=== PATIENT | female | born 1965 | race Caucasian/White ===

== ENCOUNTER 2016-08-03 20:44 | Inpatient (IN) | payer OTHER ==
[~2016-08-03] VITALS: Ht 160 cm; Wt 47.4 kg
--- NOTE | ~2016-08-03 | ST ---
[place], [place] EXERCISE STRESS TEST REPORT [facility]: [id number] UN[facility] #: [id number] ROOM: 415 DOCTOR: OLIVIA DREW MD BIRTHDATE: [birth year] DOS: 08/04/2016 INDICATIONS: Atypical chest pain. PROCEDURE: The patient was given rapid infusion of regadenoson 0.4 mg, followed by a saline flush. She developed nausea and dry heaves. The resting heart rate of 76 humberto to 114. The resting blood pressure of 122/84 humberto to 138/78. She was in sinus rhythm throughout and did not develop any ST or T-wave changes. 40 seconds after the infusion of regadenoson, radionuclide was administered. IMPRESSION: 1. Well tolerated infusion of regadenoson. 2. Radionuclide injected. Please see the separate imaging report for further details of the patient's stress test results. OLIVIA DREW MD CM:STRESS:EXERCISE STRESS TEST REPORT [id number] OLIVIA DREW MD
--- NOTE | ~2016-08-03 | CON ---
[place], [place] REPORT OF CONSULTATION NAME: ALFREDO GARCIA [facility] #: [id number] UNIT #: [id number] ROOM: 415 DOCTOR: OLIVIA DREW MD BIRTHDATE: [birth year] DOS: 08/04/2016 REASON FOR CONSULTATION: Chest pain. HISTORY OF PRESENT ILLNESS: The patient is a 50-year-old woman who has no previously documented heart disease. She states that she did have a mitral valve prolapse in the past; however, an echocardiogram done in 2007 showed normal left ventricular size and function with normal mitral leaflet excursion and no regurgitation. The patient states that she was in her normal state of health until about 3 days ago when she began having episodic left chest pain. She describes a sharp pain that begins under her breast, radiates around her left breast and then up into her left anterior chest, shoulder and upper arm. This is associated with dyspnea and slight diaphoresis. The pains can last 15-20 minutes and resolve spontaneously. They are not exertional in origin. She believes that aspirin has helped some. She denies that she has any tenderness of the region. She became concerned and called EMS and they encouraged her to come to the Emergency Room. Since she has been here, her electrocardiograms have shown no acute ST changes and cardiac biomarkers have all been entirely normal. In addition, I did supervise a pharmacologic stress test on her earlier today. She tolerated the infusion of regadenoson very well. Images obtained showed normal myocardial perfusion with an ejection fraction of 81% and normal wall motion. PAST MEDICAL HISTORY: Includes 1. Anxiety. 2. Chronic and ongoing cigarette abuse. 3. Chronic bronchitis. 4. History of cerebral aneurysm (documentation not currently available). 5. Chronic pain. 6. Cervical degenerative joint disease. 7. Essential hypertension. 8. History of syncope. 9. History of "delusional disorder." 10. History of cholecystectomy. FAMILY HISTORY: Positive for both her parents having heart disease at a later age. REVIEW OF SYSTEMS: The patient denies diplopia. She feels generally weak. She denies focal weakness. She denies current syncope. She does feel occasionally lightheaded. She denies vomiting, but she has had nausea. She does have a severe headache which she describes as a migraine. She denies orthopnea or PND. She has not had a cough and denies any significant sputum production. She does have the chest pain described above. She has chronic abdominal pain, which she states is different from her chest pain. She denies any blood in the urine or stools. She denies any peripheral edema or history of blood clot. She denies polyuria or polydipsia. She denies heat or cold intolerance. Remainder of the review of systems is negative except as noted above. [place], [place] REPORT OF CONSULTATION NAME: ALFREDO GARCIA UNIT #: [id number] ROOM: [facility] DOCTOR: OLIVIA DREW MD BIRTHDATE: [birth year] SOCIAL HISTORY: The patient does not consume alcohol or take illicit drugs. She is a smoker. PHYSICAL EXAMINATION: GENERAL: The patient is a slender white female who is awake, alert and oriented. VITAL SIGNS: Pulse is 80 and regular, blood pressure is 112/65. She is afebrile. She weighs 47.4 kg and has a body mass index of 18.5. HEENT: Normocephalic, atraumatic. Extraocular muscles are intact. Sclerae are clear. Pupils are equal, round and reactive to light. The oral mucosa is moist. Tongue is midline. NECK: Supple. She does have a soft left carotid bruit, but none on the right. She has no neck or supraclavicular masses. She does have mild thyromegaly. LUNGS: Respirations are unlabored at rest. She has decreased breath sounds at the bases, but no wheezes or rales. She has no presacral edema or chest wall tenderness. I could not reproduce her chest pain by palpation of her chest. CARDIOVASCULAR: Her heart has a regular rhythm without murmurs, rubs or gallops. The PMI was not displaced. She had no precordial heave, lift or thrill. ABDOMEN: Soft and diffusely, but mildly tender without masses, organomegaly or rebound. EXTREMITIES: Showed no clubbing, cyanosis or edema. Peripheral pulses were easily palpated in the feet bilaterally. LABORATORY DATA: I have reviewed her electrocardiogram, which showed sinus rhythm and was a normal tracing. I also reviewed her stress test images and those were normal as well with a normal ejection fraction and wall motion. There was no evidence for myocardial ischemia. IMPRESSIONS: 1. Atypical chest pain. There is no evidence by examination, electrocardiogram, cardiac biomarkers or stress test that this is cardiac pain and I think that we are safe to say that she has noncardiac chest pain. Most likely, this is musculoskeletal or GI in origin. 2. History of anxiety. 3. History of hypothyroidism, on replacement. 4. History of hypertension, well controlled. 5. Long-term and ongoing cigarette abuse. PLAN: I advised the patient that she should stop smoking. We will obtain a bilateral carotid ultrasound in order to evaluate her left carotid bruit. Since she does not appear to have acute coronary ischemia, she could be discharged to have this done as an outpatient. No other cardiac workup is indicated or pending at this time. We thank the hospitalist physicians for asking our advice regarding her assessment and care. [place], [place] REPORT OF CONSULTATION NAME: ALFREDO GARCIA UNIT #: [id number] ROOM: [facility] DOCTOR: OLIVIA DREW MD BIRTHDATE: [birth year] OLIVIA DREW MD CM:CONSTR:REPORT OF CONSULTATION 1701 08/05/16 0908 interface
--- NOTE | ~2016-08-03 | PR ---
[place], [place] PROGRESS NOTE NAME: ALFREDO GARCIA [facility] #: [id number] UNIT #: [id number] ROOM: 415 DOCTOR: OLIVIA DREW MD BIRTHDATE: [birth year] DOS: 08/05/2016 CARDIOLOGY PROGRESS NOTE SUBJECTIVE: The patient was seen at her bedside today 08/05/2016 for followup of her atypical chest pain and left carotid bruit. The patient is feeling better. She still has some tightness in her chest, but it does seem to be improving spontaneously. She denies palpitations, lightheadedness, syncope or worsening dyspnea. PHYSICAL EXAMINATION: VITAL SIGNS: Her pulse is 63 and regular, blood pressure is 125/82. She is afebrile. NECK: Supple. She has no jugular distention. Carotids are full. She has a soft left carotid bruit. LUNGS: Respirations are unlabored. Her chest shows decreased breath sounds at the bases, but no wheezes or rales. HEART: Has a regular rhythm without murmurs, rubs or gallops. The PMI is not displaced. ABDOMEN: Soft and mildly tender. EXTREMITIES: Showed no clubbing, cyanosis or edema. LABORATORY DATA: Her carotid ultrasound showed no significant stenoses. By ____ criteria, she has less than 50% stenoses of the internal carotids bilaterally. IMPRESSION: 1. Atypical, noncardiac chest pain. 2. History of anxiety. 3. History of hypothyroidism, on replacement. 4. History of hypertension, which is well controlled. 5. Long-term and ongoing cigarette abuse. 6. Left carotid bruit. The patient has no evidence for carotid stenosis. PLAN: Once again the patient should stop smoking. No other cardiac workup is planned at this time. We will remain available to see her as needed. I thank the hospitalist physicians for asking our advice regarding her care. [place], [place] PROGRESS NOTE NAME: ALFREDO GARCIA [facility] #: [id number] UNIT #: [id number] ROOM: 415 DOCTOR: OLIVIA DREW MD BIRTHDATE: [birth year] OLIVIA DREW MD CM:PNTRANS [id number] OLIVIA DREW MD 08/06/16 0540 interface
[~2016-08-03 20:44] MED LIST: ALBUTEROL0.09 MG/A2 INH; ATENOLOL25 MG PO; ATIVAN PO; ATIVAN0.5 MG PO; ATIVAN1 MG PO; BACTRIM DS 8001 TA1 PO; BACTROBAN OINT22 GM PO; CIPRO; CIPRO250 MG PO; CIPRO500 MG PO; CIPROFLOXACIN500 MG PO; CLARITIN10 MG; CLARITIN10 MG PO; CLEOCIN HCL150 MG PO; COMBIVENT1 ARO IH; DELTASONE20 MG PO; DICLOFENAC POTA50 MG PO; DOXYCYCLINE MO100 MG PO; DUONEB 3ML 3 MG/3 ML INH; FIORICET 325 MG1 TAB PO; FLEXERIL10 MG PO; IRON325 MG PO; KEPPRA250 MG PO; LISINOPRIL10 MG PO; LISINOPRIL40 MG PO; MACROBID100 M1 PO; MEDROL DOSEPAK4 MG PO; OXYCODONE5 M1 PO; PERCOCET 325 MG1 TA2 PO; PERCOCET 325 MG1 TA4 PO; PERCOCET 325 MG1 TA7 PO; POTASSIUM20 MEQ PO; ROBAXIN IV; ROBITUSSIN AC 110 ML PO; SYNTHROID0.1 MG PO; TORADOL10 MG PO; TRAMADOL HCL50 MG PO; ULTRAM50 MG PO; VANCOCIN1000 MG/25 IV; VITAMIN B121000 MC2 PO; VITAMIN D1000 IU PO; XANAX1 MG PO; ZANTAC150 MG PO; ZITHROMAX Z PA250 MG PO; ZOFRAN ODT4 MG PO; ZOFRAN ODT4 MG SL; ZOFRAN4 MG PO; ZOFRAN8 MG PO; Zofran4 MG PO; [UNRECOGNIZED DRUG - OTHER]; [UNRECOGNIZED DRUG - REMARK]
[2016-08-03 20:49] VITALS: BP 168/110
[2016-08-03] MEDS ORDERED: LATU20TA PO (20:58)
[2016-08-03 21:18] VITALS: BP 157/95
[2016-08-03 21:26] LABS: BASO # 0.1 10*3/uL (0.0-0.1); EOS # 0.2 10*3/uL (0.0-0.4); EOS % 2.9 % (1.0-4.0); HEMATOCRIT 37.5 % (37.0-47.0); HEMOGLOBIN 12.1 g/dl (12.0-16.0); LYMPH # 2.8 10*3/uL (1.3-4.4); LYMPH % 35.8 % (27.0-41.0); MEAN CELL VOLUME 77.2 fl (81.0-99.0); MEAN CORPUSCULAR HGB 24.9 pg (27.0-31.0); MEAN CORPUSCULAR HGB CONC 32.3 g/dl (33.0-37.0); MONO # 0.6 10*3/uL (0.1-1.0); MONO % 7.1 % (3.0-9.0); NEUT # 4.1 10*3/uL (2.3-7.9); NEUT % 52.9 % (47.0-73.0); PLATELET COUNT AUTOMATED 262 10*3/uL (130-400); RED BLOOD COUNT 4.86 10*6/uL (4.10-5.10); RED CELL DISTRI WIDTH 15.4 % (0-14.5); WHITE BLOOD COUNT 7.7 10*3/uL (4.8-10.8)
[2016-08-03 21:40] VITALS: BP 162/96
[2016-08-03 21:46] LABS: ALBUMIN 3.9 gm/dl (3.1-4.5); ALKALINE PHOSPHATASE 59 U/L (45-117); BILIRUBIN, DIRECT < 0.1 mg/dL (0.0-0.2); BILIRUBIN, TOTAL 0.2 mg/dl (0.2-1.0); BUN 8 mg/dl (7-24); CARBON DIOXIDE 26 mmol/L (21-32); CHLORIDE 106 mmol/L (98-107); EST GLOM FILT AFRICAN AMERICAN > 60 ml/min; GLUCOSE 83 mg/dL (65-99); MAGNESIUM 1.8 mg/dL (1.5-2.1); POTASSIUM 3.4 mmol/L (3.5-5.1); SGOT/AST 15 IU/L (3-35); SGPT/ALT 9 U/L (12-78); SODIUM 141 mmol/L (136-145); TOTAL PROTEIN 7.5 gm/dL (6.4-8.2)
[2016-08-03 21:51] LABS: TROPONIN I < 0.015 ng/ml (<0.045)
[2016-08-03 22:13] VITALS: BP 171/92
[2016-08-03 22:49] VITALS: BP 168/74
[2016-08-04 01:15] VITALS: BP 153/82
[2016-08-04] MEDS ORDERED: ZYRTEC10 MG PO (01:32)
[2016-08-04] MEDS ORDERED: XANAX1 MG PO (01:36)
[2016-08-04] MEDS ORDERED: LEVETIRACETAM500 MG PO (01:51)
[2016-08-04] MEDS ORDERED: ONDANSETRON ODT8 MG PO (02:40)
[2016-08-04] MEDS ORDERED: GOOD NEIGHBOR150 MG PO (02:41)
[2016-08-04] MEDS ORDERED: DEEP SEA 45 ML45 ML NAS (02:42)
[2016-08-04] MEDS ORDERED: FLUTICASON0.05 MG/AC NAS (02:43)
[2016-08-04] MEDS ORDERED: DUONEB 3 MG/3 ML3 M1 INH (02:43)
[2016-08-04] MEDS ORDERED: HYDROXYZINE PAM25 M1 PO (02:44)
[2016-08-04 06:25] LABS: BASO # 0.1 10*3/uL (0.0-0.1); BASO % 1.2 % (0.0-1.0); EOS # 0.3 10*3/uL (0.0-0.4); EOS % 4.6 % (1.0-4.0); HEMATOCRIT 35.3 % (37.0-47.0); HEMOGLOBIN 11.4 g/dl (12.0-16.0); LYMPH # 3.5 10*3/uL (1.3-4.4); LYMPH % 47.1 % (27.0-41.0); MEAN CELL VOLUME 78.4 fl (81.0-99.0); MEAN CORPUSCULAR HGB 25.3 pg (27.0-31.0); MEAN CORPUSCULAR HGB CONC 32.3 g/dl (33.0-37.0); MONO # 0.4 10*3/uL (0.1-1.0); MONO % 5.9 % (3.0-9.0); NEUT # 3.1 10*3/uL (2.3-7.9); NEUT % 40.9 % (47.0-73.0); PLATELET COUNT AUTOMATED 247 10*3/uL (130-400); RED CELL DISTRI WIDTH 15.8 % (0-14.5); WHITE BLOOD COUNT 7.5 10*3/uL (4.8-10.8)
[2016-08-04 06:48] LABS: HEMOGLOBIN A1c 5.5 % (4.8-5.6)
[2016-08-04 07:03] LABS: ALBUMIN 3.5 gm/dl (3.1-4.5); BILIRUBIN, TOTAL 0.3 mg/dl (0.2-1.0); BUN 10 mg/dl (7-24); CARBON DIOXIDE 27 mmol/L (21-32); CHLORIDE 107 mmol/L (98-107); CHOLESTEROL 154 mg/dL (<200); EST GLOM FILT AFRICAN AMERICAN > 60 ml/min; GLUCOSE 82 mg/dL (65-99); MAGNESIUM 1.9 mg/dL (1.5-2.1); PHOSPHOROUS 4.1 mg/dL (2.5-4.9); POTASSIUM 3.4 mmol/L (3.5-5.1); SGOT/AST 9 IU/L (3-35); SGPT/ALT 9 U/L (12-78); SODIUM 142 mmol/L (136-145); TOTAL PROTEIN 6.7 gm/dL (6.4-8.2); TRIGLYCERIDES 52 mg/dl (<150); VLDL CHOLESTEROL 10 mg/dL (6-40)
[2016-08-04 07:05] LABS: FOLIC ACID 21.18 ng/mL (>5.38); VITAMIN D, 25-HYDROXY 13.5 ng/mL (30-100)
[2016-08-04 07:06] LABS: INTERNATIONAL NORM RATIO 1.1 (2.0-3.5); PROTHROMBIN TIME 11.5 SECONDS (9.0-12.4)
[2016-08-04 07:09] LABS: ALKALINE PHOSPHATASE 51 U/L (45-117); HDL CHOLESTEROL 43 mg/dl (40-60); LDL CHOLESTEROL 101 mg/dL (9-159)
[2016-08-04 08:00] VITALS: BP 120/83
[2016-08-04] MEDS ORDERED: Percocet 325 MG1 TAB PO (09:55)
[2016-08-04 11:46] VITALS: BP 134/82
[2016-08-04 16:00] VITALS: BP 112/65
[2016-08-04 20:00] VITALS: BP 145/80
[2016-08-05] VITALS: BP 120/73
[2016-08-05 05:58] LABS: BUN 18 mg/dl (7-24); CARBON DIOXIDE 31 mmol/L (21-32); CHLORIDE 104 mmol/L (98-107); EST GLOM FILT AFRICAN AMERICAN > 60 ml/min; GLUCOSE 92 mg/dL (65-99); POTASSIUM 3.8 mmol/L (3.5-5.1); SODIUM 142 mmol/L (136-145)
[2016-08-05 05:59] LABS: BASO # 0.1 10*3/uL (0.0-0.1); EOS # 0.3 10*3/uL (0.0-0.4); EOS % 3.8 % (1.0-4.0); HEMATOCRIT 35.8 % (37.0-47.0); HEMOGLOBIN 11.3 g/dl (12.0-16.0); LYMPH # 3.4 10*3/uL (1.3-4.4); LYMPH % 43.2 % (27.0-41.0); MEAN CELL VOLUME 79.9 fl (81.0-99.0); MEAN CORPUSCULAR HGB 25.2 pg (27.0-31.0); MEAN CORPUSCULAR HGB CONC 31.6 g/dl (33.0-37.0); MEAN PLATELET VOLUME 9.9 fl (9.6-12.3); MONO # 0.5 10*3/uL (0.1-1.0); MONO % 5.6 % (3.0-9.0); NEUT # 3.7 10*3/uL (2.3-7.9); NEUT % 46.1 % (47.0-73.0); PLATELET COUNT AUTOMATED 232 10*3/uL (130-400); RED BLOOD COUNT 4.48 10*6/uL (4.10-5.10); RED CELL DISTRI WIDTH 15.9 % (0-14.5)
[2016-08-05 08:00] VITALS: BP 125/82
[2016-08-05] MEDS ORDERED: D-1000 185 MG-11 TAB PO (15:28)
== END 2016-08-05 16:57 | disposition home or self-care (01) | DRG 206 ==
LOC: ED 20:44 → EDHOLD 23:05 → 4E 23:05
PROVIDERS: Emergency Medicine; Internal Medicine; Student in an Organized Health Care Education/Training Program
PROC: 4A02XM4 Measurement of Cardiac Total Activity, External Approach (ICD-10-PCS; principal; 2016-08-04)
PROC: 3E033HZ Introduction of Radioactive Substance into Peripheral Vein, Percutaneous Approach (ICD-10-PCS; 2016-08-04)
DX: M94.0 Chondrocostal junction syndrome [Tietze] (principal); I67.1 Cerebral aneurysm, nonruptured; I65.23 Occlusion and stenosis of bilateral carotid arteries; Z93.6 Other artificial openings of urinary tract status; M50.30 Other cervical disc degeneration, unspecified cervical region; I10 Essential (primary) hypertension; G89.29 Other chronic pain; F41.9 Anxiety disorder, unspecified; E87.6 Hypokalemia; E04.1 Nontoxic single thyroid nodule; E03.9 Hypothyroidism, unspecified; F17.210 Nicotine dependence, cigarettes, uncomplicated; F22 Delusional disorders; Z88.2 Allergy status to sulfonamides; Z88.6 Allergy status to analgesic agent; Z88.1 Allergy status to other antibiotic agents; Z88.8 Allergy status to other drugs, medicaments and biological substances; Z91.041 Radiographic dye allergy status; Z82.49 Family history of ischemic heart disease and other diseases of the circulatory system; Z90.49 Acquired absence of other specified parts of digestive tract; Z91.048 Other nonmedicinal substance allergy status; Z79.1 Long term (current) use of non-steroidal anti-inflammatories (NSAID); Z79.899 Other long term (current) drug therapy

== ENCOUNTER → 2018-09-20 | Outpatient (CLI) | payer OTHER ==
[~2018-09-20] MED LIST changes: +D-1000 185 MG-11 TAB PO; +DEEP SEA 45 ML45 ML NAS; +DUONEB 3 MG/3 ML3 M1 INH; +FLUTICASON0.05 MG/AC NAS; +GOOD NEIGHBOR150 MG PO; +HYDROXYZINE PAM25 M1 PO; +LATU20TA PO; +LEVETIRACETAM500 MG PO; +NAPROSYN500 MG PO; +ONDANSETRON ODT8 MG PO; +Percocet 325 MG1 TAB PO; +ROBAXIN500 M1 PO; +ZYRTEC10 MG PO
== END | disposition home or self-care (01) ==
LOC: RAD 02:10
DX: M25.552 Pain in left hip (principal); M25.551 Pain in right hip; M17.12 Unilateral primary osteoarthritis, left knee; M47.812 Spondylosis without myelopathy or radiculopathy, cervical region; M47.816 Spondylosis without myelopathy or radiculopathy, lumbar region

== ENCOUNTER 2018-10-04 17:27 | Emergency (ER) | payer OTHER ==
[~2018-10-04] VITALS: Ht 160 cm; Wt 61.2 kg
[~2018-10-04 17:27] MED LIST changes: -NAPROSYN500 MG PO; -ROBAXIN500 M1 PO
[2018-10-04] MEDS ORDERED: MEDROL DOSEPAK4 MG PO (19:08)
[2018-10-04] MEDS ORDERED: NAPROSYN500 MG PO (19:08)
[2018-10-04] MEDS ORDERED: ROBAXIN500 M1 PO (19:08)
[2018-10-04 19:12] VITALS: BP 146/85
== END 2018-10-04 19:55 | disposition home or self-care (01) ==
LOC: ED 17:27
DX: S09.90XA Unspecified injury of head, initial encounter (principal); M25.561 Pain in right knee; M54.5 Low back pain; M54.2 Cervicalgia; F17.200 Nicotine dependence, unspecified, uncomplicated; Z93.6 Other artificial openings of urinary tract status; Z79.899 Other long term (current) drug therapy; Z88.6 Allergy status to analgesic agent; Z91.041 Radiographic dye allergy status; Z88.2 Allergy status to sulfonamides; Z88.8 Allergy status to other drugs, medicaments and biological substances; W01.0XXA Fall on same level from slipping, tripping and stumbling without subsequent striking against object, initial encounter; Y93.01 Activity, walking, marching and hiking; Y92.89 Other specified places as the place of occurrence of the external cause; Y99.8 Other external cause status

== ENCOUNTER 2018-11-30 10:55 | Emergency (ER) | payer OTHER ==
[~2018-11-30] VITALS: Ht 157.4 cm; Wt 59.9 kg
[~2018-11-30 10:55] MED LIST changes: +NAPROSYN500 MG PO; +ROBAXIN500 M1 PO
[2018-11-30 10:56] VITALS: BP 182/95
[2018-11-30] MEDS ORDERED: PROAIR HFA8.5 GM INH (13:36)
[2018-11-30] MEDS ORDERED: AUGMENTIN 875875 MG PO (13:36)
[2018-11-30] MEDS ORDERED: PREDNISONE50 MG PO (13:36)
== END 2018-11-30 13:51 | disposition left against medical advice (07) ==
LOC: ED 10:55
DX: J20.9 Acute bronchitis, unspecified (principal); R09.02 Hypoxemia; I10 Essential (primary) hypertension; F17.200 Nicotine dependence, unspecified, uncomplicated; Z88.6 Allergy status to analgesic agent; Z91.041 Radiographic dye allergy status; Z88.1 Allergy status to other antibiotic agents; Z88.8 Allergy status to other drugs, medicaments and biological substances; Z91.048 Other nonmedicinal substance allergy status; Z88.2 Allergy status to sulfonamides; Z79.899 Other long term (current) drug therapy; Z90.49 Acquired absence of other specified parts of digestive tract

== ENCOUNTER → 2019-01-13 | Outpatient (CLI) | payer OTHER ==
[~2019-01-13] MED LIST changes: +AUGMENTIN 875875 MG PO; +DOXEPIN HCL25 MG PO; +FENOFIBRATE54 MG PO; +LATU120T PO; +LIPITOR20 MG PO; +MIRTAZAPINE45 M1 PO; +PREDNISONE20 M1 PO; +PREDNISONE50 MG PO; +PROAIR HFA8.5 GM INH
== END | disposition home or self-care (01) ==
LOC: ORTHO 00:38
DX: M17.11 Unilateral primary osteoarthritis, right knee (principal)

== ENCOUNTER 2019-01-16 10:29 | Inpatient (IN) | payer OTHER ==
[~2019-01-16] VITALS: Ht 160 cm; Wt 61.7 kg
[~2019-01-16 10:29] MED LIST changes: -DOXEPIN HCL25 MG PO; -FENOFIBRATE54 MG PO; -LATU120T PO; -LIPITOR20 MG PO; -MIRTAZAPINE45 M1 PO; -PREDNISONE20 M1 PO
[2019-01-16 10:32] VITALS: BP 98/56
[2019-01-16 10:55] LABS: BASO # 0.1 10*3/uL (0.0-0.1); BASO % 0.6 % (0.0-1.0); EOS # 0.2 10*3/uL (0.0-0.4); EOS % 1.4 % (1.0-4.0); HEMATOCRIT 45.4 % (37.0-47.0); HEMOGLOBIN 14.7 g/dl (12.0-16.0); LYMPH # 2.9 10*3/uL (1.3-4.4); MEAN CELL VOLUME 87.1 fl (81.0-99.0); MEAN CORPUSCULAR HGB 28.2 pg (27.0-31.0); MEAN CORPUSCULAR HGB CONC 32.4 g/dl (33.0-37.0); MONO % 7.1 % (3.0-9.0); NEUT # 10.1 10*3/uL (2.3-7.9); NEUT % 70.4 % (47.0-73.0); PLATELET COUNT AUTOMATED 242 10*3/uL (130-400); RED BLOOD COUNT 5.21 10*6/uL (4.10-5.10); RED CELL DISTRI WIDTH 14.7 % (0-14.5); WHITE BLOOD COUNT 14.4 10*3/uL (4.8-10.8)
[2019-01-16 11:04] LABS: ACT PARTIAL THROMBO TIME 27.3 SECONDS (20.0-32.1); INTERNATIONAL NORM RATIO 0.9 (2.0-3.5)
[2019-01-16 11:08] VITALS: BP 116/69
[2019-01-16 11:12] LABS: ALBUMIN 3.6 gm/dl (3.1-4.5); ALKALINE PHOSPHATASE 78 U/L (45-117); BUN 22 mg/dl (7-24); CHLORIDE 106 mmol/L (98-107); CREATININE 1.27 mg/dL (0.55-1.02); POTASSIUM 4.3 mmol/L (3.5-5.1); SGOT/AST 11 IU/L (3-35); SGPT/ALT 16 U/L (12-78); SODIUM 137 mmol/L (136-145); TOTAL PROTEIN 7.3 gm/dL (6.4-8.2)
[2019-01-16 11:15] LABS: TROPONIN I < 0.015 ng/ml (<0.045)
[2019-01-16 12:59] VITALS: BP 111/76
[2019-01-16 13:00] VITALS: BP 105/85
--- NOTE | 2019-01-16 13:00 | NUR ---
A 53, admitted to 5E, under the services of MARYJANE Laboy DO with a diagnosis of CHEST PAIN , LOW BP. Chief complaint is CHEST PAIN . Patient arrived via STRETCHER from ER. Monitor applied. Initial assessment completed. Vital signs taken and recorded. MARYJANE LABOY DO notified of admission to the unit. Orders received. See assessment for past medical history, medications and allergies. Patient and/or family oriented to unit. [facility] visitation policy reviewed. Clothing/patient valuable form completed. KEILY JORGENSEN
[2019-01-16] MEDS ORDERED: LATU120T PO (13:22)
[2019-01-16] MEDS ORDERED: LIPITOR20 MG PO (13:23)
[2019-01-16] MEDS ORDERED: MIRTAZAPINE45 M1 PO (13:26)
[2019-01-16] MEDS ORDERED: DOXEPIN HCL25 MG PO (13:27)
[2019-01-16] MEDS ORDERED: FENOFIBRATE54 MG PO (13:27)
--- NOTE | 2019-01-16 14:08 | NUR ---
PHYSICAL THERAPY Nursing screen received. Pt admitted from PCP office for intermittent chest pain with radiation to L UE/back and hypotension. Pt previously at [facility] for similar symptoms and was discharged with no therapy needs. Pt doesn't appear to have PT needs at this time however if Pt has functional decline in ambulation and ADLs, would benefit from PT referral. Thank you Destiny Neal, PT, DPT
[2019-01-16 16:00] VITALS: BP 119/76
--- NOTE | 2019-01-16 16:38 | NUR ---
PT REQUESTED AND GIVEN ZOFRAN FOR C/O NAUSEA. WILL MONITOR
--- NOTE | 2019-01-16 17:52 | NUR ---
PT REQUESTED AND GIVEN PERCOCET FOR GEN PAIN AND XANAX FOR ANXIETY WILL MONITOR
--- NOTE | 2019-01-16 19:55 | NUR ---
24 HR chart check completed.
[2019-01-16 20:00] VITALS: BP 116/82
--- NOTE | 2019-01-16 21:00 | NUR ---
AWAKE, WATHCING TV. FLAT AFFECT. RESPIRATIONS EASY. LUNGS DIMINISHED, CLEAR. PULSE OX 94% RA. NON-PROD COUGH. IV FLUIDS INFUSING PER ORDER. CALL LIGHT WITHIN REACH.
--- NOTE | 2019-01-16 22:30 | NUR ---
MEDICATED WITH VISTARIL PER PRN ORDER TO ASSIST WITH ANXIETY. WILL MONITOR
[2019-01-17] VITALS: BP 110/67
--- NOTE | 2019-01-17 | NUR ---
REQUESTED AND RECEIVED PERCOCET PER PRN ORDER FOR COMPLAINTS OF GENERALIZED ACHES AND PAINS RATING AN 8. CALL LIGHT WITHIN REACH. WILL MONITOR FOR EFFECTIVENESS
--- NOTE | 2019-01-17 02:45 | NUR ---
AWAKE, CALLING OUT FOR "NERVE PILL." MEDICATED WITH XANAX, SEE EMAR. CALL LIGHT WITHIN REACH. WILL MONITOR FOR EFFECTIVENESS
--- NOTE | 2019-01-17 06:00 | NUR ---
PATIENT STOPPED BY SECURITY SHE WAS ATTEMTPING TO LEAVE FLOOR TO SMOKE. AGAIN INFORMED THAT THIS IS A SMOKE FREE FACILITY. PATIENT BROUGHT BACK TO FLOOR AND RETURNED TO ROOM. DR ESTRELLA CONTACTED AND ORDER RECEIVED FOR NICOTINE PATCH
[2019-01-17 06:50] LABS: HEMATOCRIT 40.5 % (37.0-47.0); HEMOGLOBIN 12.9 g/dl (12.0-16.0); MEAN CORPUSCULAR HGB CONC 31.9 g/dl (33.0-37.0); MEAN PLATELET VOLUME 10.3 fl (9.6-12.3); PLATELET COUNT AUTOMATED 240 10*3/uL (130-400); RED CELL DISTRI WIDTH 14.6 % (0-14.5); WHITE BLOOD COUNT 15.2 10*3/uL (4.8-10.8)
--- NOTE | 2019-01-17 06:58 | NUR ---
CALLED TO ROOM BY PATIENT WHO STATES "I'M READY TO GO." EXPLAINED TO PATIENT THAT IF SHE LEAVES, SHE IS LEAVING AGAINST MEDICAL ADVICE. PATIENT VOICES UNDERSTANDING AND STATES "MY NERVES CAN'T TAKE IT." ENCOURAGED PATIENT TO STAY UNTIL MADE ROUNDS THIS AM. PATIENT DECLINES. DARLINE SIGNED. PATIENT AMBULATED OFF FLOOR
--- NOTE | 2019-01-17 07:00 | NUR ---
DR ESTRELLA AND NURSING SHAKE BACKBOARD NOTCHER INFORMED PATIENT LEFT AMA
[2019-01-17 07:23] LABS: BUN 22 mg/dl (7-24); CHLORIDE 110 mmol/L (98-107); CREATININE 1.01 mg/dL (0.55-1.02); PHOSPHOROUS 2.4 mg/dL (2.5-4.9); POTASSIUM 4.1 mmol/L (3.5-5.1); SODIUM 139 mmol/L (136-145)
[2019-01-17 11:08] LABS: NEUT % 93.4 % (47.0-73.0)
[2019-01-17 11:10] LABS: BASO % 0.1 % (0.0-1.0); LYMPH # 0.6 10*3/uL (1.3-4.4); LYMPH % 4.2 % (27.0-41.0); MONO # 0.3 10*3/uL (0.1-1.0); MONO % 1.8 % (3.0-9.0); NEUT # 14.2 10*3/uL (2.3-7.9)
[2019-01-17] MEDS ORDERED: PREDNISONE20 M1 PO (11:11)
[2019-01-17] MEDS ORDERED: AUGMENTIN 875875 MG PO (11:11)
== END 2019-01-17 07:00 | disposition left against medical advice (07) | DRG 720 ==
LOC: ED 10:29 → EDHOLD 11:59 → 5E 12:12
PROVIDERS: Emergency Medicine; Internal Medicine; ADMIT Family Medicine
DX: A41.9 Sepsis, unspecified organism (principal); N17.0 Acute kidney failure with tubular necrosis; J18.9 Pneumonia, unspecified organism; E86.0 Dehydration; R73.9 Hyperglycemia, unspecified; R74.8 Abnormal levels of other serum enzymes; I10 Essential (primary) hypertension; F41.9 Anxiety disorder, unspecified; J44.0 Chronic obstructive pulmonary disease with (acute) lower respiratory infection; K21.9 Gastro-esophageal reflux disease without esophagitis; Z53.29 Procedure and treatment not carried out because of patient's decision for other reasons; G89.29 Other chronic pain; E03.9 Hypothyroidism, unspecified; Z71.6 Tobacco abuse counseling; Z90.49 Acquired absence of other specified parts of digestive tract; Z82.49 Family history of ischemic heart disease and other diseases of the circulatory system; Z88.2 Allergy status to sulfonamides; Z88.8 Allergy status to other drugs, medicaments and biological substances; Z88.1 Allergy status to other antibiotic agents; Z91.041 Radiographic dye allergy status

== ENCOUNTER 2019-01-17 10:20 | Emergency (ER) | payer OTHER ==
[~2019-01-17] VITALS: Ht 157.4 cm; Wt 59.0 kg
[~2019-01-17 10:20] MED LIST changes: +DOXEPIN HCL25 MG PO; +FENOFIBRATE54 MG PO; +LATU120T PO; +LIPITOR20 MG PO; +MIRTAZAPINE45 M1 PO
[2019-01-17 10:24] VITALS: BP 146/76
[2019-01-17] MEDS ORDERED: PREDNISONE20 M1 PO (11:11)
[2019-01-17] MEDS ORDERED: AUGMENTIN 875875 MG PO (11:11)
--- NOTE | 2019-01-17 15:50 | NUR ---
Nursing screen received and patient discharged 01/17/19 before screen completed. Ary Renee OTR/L
== END 2019-01-17 11:15 | disposition home or self-care (01) ==
LOC: ED 10:20
DX: J44.1 Chronic obstructive pulmonary disease with (acute) exacerbation (principal); I10 Essential (primary) hypertension; E07.9 Disorder of thyroid, unspecified; F17.200 Nicotine dependence, unspecified, uncomplicated; Z76.0 Encounter for issue of repeat prescription; Z88.6 Allergy status to analgesic agent; Z91.041 Radiographic dye allergy status; Z88.1 Allergy status to other antibiotic agents; Z88.8 Allergy status to other drugs, medicaments and biological substances; Z91.048 Other nonmedicinal substance allergy status; Z88.2 Allergy status to sulfonamides; Z79.899 Other long term (current) drug therapy

== ENCOUNTER → 2019-01-20 | Outpatient (CLI) | payer OTHER ==
[~2019-01-20] MED LIST changes: +PREDNISONE20 M1 PO
== END | disposition home or self-care (01) ==
LOC: MRI 00:22
DX: M17.11 Unilateral primary osteoarthritis, right knee (principal); M23.41 Loose body in knee, right knee; M25.461 Effusion, right knee

== ENCOUNTER → 2019-03-08 | Outpatient (CLI) | payer OTHER | END | disposition home or self-care (01) | LOC: ORTHO 00:18 | DX: M25.512 Pain in left shoulder (principal) ==

== ENCOUNTER → 2019-03-17 | Outpatient (CLI) | payer OTHER | END | disposition home or self-care (01) | LOC: US 00:40 | DX: M54.9 Dorsalgia, unspecified (principal); R14.0 Abdominal distension (gaseous); Z90.49 Acquired absence of other specified parts of digestive tract ==

== ENCOUNTER → 2019-12-06 | Outpatient (CLI) | payer MEDICAID | END | disposition home or self-care (01) | LOC: COVID19 00:29 | PROVIDERS: ATTEND Family Medicine | DX: Z20.828 Contact with and (suspected) exposure to other viral communicable diseases (principal) ==

== ENCOUNTER → 2019-12-11 | Outpatient (CLI) | payer MEDICAID | END | disposition home or self-care (01) | LOC: US 14:23 | PROVIDERS: ATTEND Family Medicine | DX: R68.89 Other general symptoms and signs (principal) ==

== ENCOUNTER 2020-05-25 14:33 | Emergency (ER) | payer MEDICAID ==
[~2020-05-25] VITALS: Ht 157.4 cm; Wt 65.8 kg
[2020-05-25 15:39] LABS: BASO # 0.1 10*3/uL (0.0-0.1); BASO % 1.4 % (0.0-1.0); EOS # 0.4 10*3/uL (0.0-0.4); EOS % 7.5 % (1.0-4.0); HEMATOCRIT 45.9 % (37.0-47.0); LYMPH # 1.7 10*3/uL (1.3-4.4); LYMPH % 28.2 % (27.0-41.0); MEAN CELL VOLUME 88.8 fl (81.0-99.0); MEAN CORPUSCULAR HGB CONC 32.7 g/dl (33.0-37.0); MEAN PLATELET VOLUME 10.1 fl (9.6-12.3); MONO # 0.5 10*3/uL (0.1-1.0); NEUT # 3.2 10*3/uL (2.3-7.9); NEUT % 54.6 % (47.0-73.0); PLATELET COUNT AUTOMATED 256 10*3/uL (130-400); RED BLOOD COUNT 5.17 10*6/uL (4.10-5.10); RED CELL DISTRI WIDTH 11.8 % (0-14.5); WHITE BLOOD COUNT 5.9 10*3/uL (4.8-10.8)
[2020-05-25 15:55] LABS: ALBUMIN 3.6 gm/dl (3.1-4.5); ALKALINE PHOSPHATASE 81 U/L (45-117); BUN 12 mg/dl (7-24); CHLORIDE 108 mmol/L (98-107); CREATININE 1.08 mg/dL (0.55-1.02); POTASSIUM 3.3 mmol/L (3.5-5.1); SGOT/AST 31 IU/L (3-35); SGPT/ALT 50 U/L (12-78); SODIUM 140 mmol/L (136-145); TOTAL PROTEIN 7.2 gm/dL (6.4-8.2)
[2020-05-25 15:59] LABS: TROPONIN I < 0.015 ng/ml (<0.045)
[2020-05-25 16:41] VITALS: BP 158/107
[2020-05-25 17:30] LABS: BILIRUBIN Negative (Negative); BLOOD Negative (Negative); CLARITY Cloudy (Clear); COLOR Yellow (Yellow); GLUCOSE Negative (Negative); KETONE Negative (Negative); LEUKO ESTERASE Negative (Negative); NITRITE Negative (Negative); UROBILINOGEN 0.2 E.U./dl (0.0-1.0)
[2020-05-25 17:36] LABS: RBC 0-2 rbc/hpf (0-2)
[2020-05-25 17:37] LABS: BACTERIA 4+; WBC 0-2 wbc/hpf (0-5)
[2020-05-25] MEDS ORDERED: PERCOCET 7.5-31 EACH PO (19:16)
[2020-05-25] MEDS ORDERED: ZOFRAN4 MG PO (20:03)
== END 2020-05-25 20:10 | disposition home or self-care (01) ==
LOC: ED 14:33
PROVIDERS: Physician Assistant
DX: R26.89 Other abnormalities of gait and mobility (principal); R29.6 Repeated falls; M54.9 Dorsalgia, unspecified; M25.561 Pain in right knee; M25.562 Pain in left knee; G89.29 Other chronic pain; Z88.6 Allergy status to analgesic agent; Z88.2 Allergy status to sulfonamides; Z88.8 Allergy status to other drugs, medicaments and biological substances; Z79.899 Other long term (current) drug therapy; Z90.49 Acquired absence of other specified parts of digestive tract; Z98.890 Other specified postprocedural states

== ENCOUNTER 2021-05-22 16:46 | Emergency (ER) | payer MEDICAID ==
[~2021-05-22] VITALS: Wt 65.3 kg
[~2021-05-22 16:46] MED LIST changes: +PERCOCET 7.5-31 EACH PO
[2021-05-22 17:46] LABS: BASO # 0.1 10*3/uL (0.0-0.1); BASO % 0.4 % (0.0-1.0); EOS % 0.3 % (1.0-4.0); HEMATOCRIT 45.9 % (37.0-47.0); LYMPH # 0.9 10*3/uL (1.3-4.4); LYMPH % 7.2 % (27.0-41.0); MEAN CELL VOLUME 87.1 fl (81.0-99.0); MEAN CORPUSCULAR HGB 28.1 pg (27.0-31.0); MEAN CORPUSCULAR HGB CONC 32.2 g/dl (33.0-37.0); MEAN PLATELET VOLUME 9.5 fl (9.6-12.3); MONO # 0.8 10*3/uL (0.1-1.0); MONO % 6.3 % (3.0-9.0); NEUT # 10.2 10*3/uL (2.3-7.9); NEUT % 85.5 % (47.0-73.0); PLATELET COUNT AUTOMATED 231 10*3/uL (130-400); RED BLOOD COUNT 5.27 10*6/uL (4.10-5.10); RED CELL DISTRI WIDTH 13.1 % (0-14.5); WHITE BLOOD COUNT 11.9 10*3/uL (4.8-10.8)
[2021-05-22 18:07] LABS: BILIRUBIN Negative (Negative); BLOOD Negative (Negative); CLARITY Turbid (Clear); COLOR Dark Yellow (Yellow); GLUCOSE Negative (Negative); KETONE Trace (Negative); LEUKO ESTERASE Trace (Negative); NITRITE Negative (Negative)
[2021-05-22 18:08] LABS: ALKALINE PHOSPHATASE 228 U/L (45-117); BUN 32 mg/dl (7-24); CHLORIDE 105 mmol/L (98-107); CREATININE 2.14 mg/dL (0.55-1.02); POTASSIUM 3.4 mmol/L (3.5-5.1); SGOT/AST 251 IU/L (3-35); SGPT/ALT 88 U/L (12-78); SODIUM 141 mmol/L (136-145); TOTAL PROTEIN 7.2 gm/dL (6.4-8.2)
[2021-05-22 18:14] LABS: ACT PARTIAL THROMBO TIME 26.2 SECONDS (20.0-32.1)
[2021-05-22 18:16] LABS: BACTERIA 4+
[2021-05-22 18:20] LABS: URINE AMPHETAMINES < 1000 (1000ng/ml); URINE BARBITURATES < 200 (200ng/ml); URINE BENZODIAZEPINES < 200 (200ng/ml); URINE CANNABINOIDS (THC) < 50 (50ng/ml); URINE COCAINE < 300 (300ng/ml); URINE METHADONE < 300 (300ng/ml); URINE OPIATES < 300 (300ng/ml)
[2021-05-22 18:21] LABS: CPK 2931 U/L (26-192); ETHYL ALCOHOL < 3.0 mg/dl (<3)
[2021-05-22 18:21] LABS: URINE PHENCYCLIDINE < 25 (25ng/ml)
[2021-05-22 19:47] LABS: ABG BASE EXCESS -2.3 mmol/L (-2.0-2.0); ARTERIAL BLOOD GAS PH 7.389 (7.35-7.45); ARTERIAL BLOOD GAS PO2 61.2 (80-90)
[2021-05-22 21:09] VITALS: BP 115/74
== END 2021-05-22 21:23 | disposition short-term general hospital (02) ==
LOC: ED 16:46
PROVIDERS: Emergency Medicine
DX: M79.671 Pain in right foot (principal); Z87.891 Personal history of nicotine dependence; Z90.49 Acquired absence of other specified parts of digestive tract; Z98.890 Other specified postprocedural states; K21.9 Gastro-esophageal reflux disease without esophagitis; I10 Essential (primary) hypertension; J44.9 Chronic obstructive pulmonary disease, unspecified; E03.9 Hypothyroidism, unspecified; Z79.899 Other long term (current) drug therapy; Z88.6 Allergy status to analgesic agent; Z88.1 Allergy status to other antibiotic agents; Z88.8 Allergy status to other drugs, medicaments and biological substances

== ENCOUNTER 2021-07-01 09:19 | Inpatient (IN) | payer MEDICAID ==
[~2021-07-01] VITALS: Ht 157.4 cm; Wt 71.3 kg
[2021-07-01 09:24] VITALS: BP 109/65
[2021-07-01 10:08] LABS: BASO # 0.1 10*3/uL (0.0-0.1); BASO % 1.1 % (0.0-1.0); EOS # 0.4 10*3/uL (0.0-0.4); EOS % 6.6 % (1.0-4.0); HEMATOCRIT 34.8 % (37.0-47.0); LYMPH # 1.7 10*3/uL (1.3-4.4); LYMPH % 30.5 % (27.0-41.0); MEAN CORPUSCULAR HGB 27.8 pg (27.0-31.0); MEAN CORPUSCULAR HGB CONC 31.9 g/dl (33.0-37.0); MEAN PLATELET VOLUME 9.3 fl (9.6-12.3); MONO # 0.5 10*3/uL (0.1-1.0); MONO % 8.3 % (3.0-9.0); NEUT # 2.9 10*3/uL (2.3-7.9); NEUT % 53.3 % (47.0-73.0); PLATELET COUNT AUTOMATED 259 10*3/uL (130-400); RED CELL DISTRI WIDTH 15.2 % (0-14.5); WHITE BLOOD COUNT 5.4 10*3/uL (4.8-10.8)
[2021-07-01 10:24] LABS: CREATININE 1.82 mg/dL (0.55-1.02); POTASSIUM 3.9 mmol/L (3.5-5.1); TOTAL PROTEIN 7.4 gm/dL (6.4-8.2)
[2021-07-01 14:49] VITALS: BP 100/42
[2021-07-01 16:45] VITALS: BP 102/61
[2021-07-01 20:00] VITALS: BP 125/74
[2021-07-01 21:45] LABS: BILIRUBIN Negative (Negative); BLOOD Negative (Negative); CLARITY Cloudy (Clear); COLOR Yellow (Yellow); GLUCOSE Negative (Negative); KETONE Negative (Negative); LEUKO ESTERASE 2+ (Negative); NITRITE Positive (Negative)
[2021-07-01 22:20] LABS: BACTERIA 2+; EPITHELIAL CELLS 21-30; WBC 21-30 wbc/hpf (0-5)
[2021-07-02] VITALS: BP 107/67
[2021-07-02] MEDS ORDERED: FENOFIBRATE48 M1 PO (04:36)
[2021-07-02] MEDS ORDERED: GABAPENTIN400 MG PO (04:36)
[2021-07-02] MEDS ORDERED: POTASSIUM CHLO20 ME4 PO (04:37)
[2021-07-02] MEDS ORDERED: CLOPIDOGREL75 MG PO (04:39)
[2021-07-02] MEDS ORDERED: CERTAVITE-ANTI1 EACH PO (04:39)
[2021-07-02] MEDS ORDERED: FAMOTIDINE40 MG PO (04:40)
[2021-07-02] MEDS ORDERED: LATUDA80 M1 PO (04:40)
[2021-07-02] MEDS ORDERED: TRAMADOL HCL50 MG PO (04:41)
[2021-07-02] MEDS ORDERED: VENT7GM INH (04:42)
[2021-07-02] MEDS ORDERED: VITAMIN D350 MCG PO (04:52)
[2021-07-02 06:35] LABS: BASO # 0.1 10*3/uL (0.0-0.1); BASO % 1.2 % (0.0-1.0); EOS # 0.4 10*3/uL (0.0-0.4); EOS % 10.1 % (1.0-4.0); HEMATOCRIT 32.4 % (37.0-47.0); LYMPH # 1.9 10*3/uL (1.3-4.4); LYMPH % 47.3 % (27.0-41.0); MEAN CELL VOLUME 88.5 fl (81.0-99.0); MEAN CORPUSCULAR HGB 27.9 pg (27.0-31.0); MEAN CORPUSCULAR HGB CONC 31.5 g/dl (33.0-37.0); MEAN PLATELET VOLUME 9.3 fl (9.6-12.3); MONO # 0.4 10*3/uL (0.1-1.0); MONO % 8.9 % (3.0-9.0); NEUT # 1.3 10*3/uL (2.3-7.9); NEUT % 32.3 % (47.0-73.0); PLATELET COUNT AUTOMATED 230 10*3/uL (130-400); RED BLOOD COUNT 3.66 10*6/uL (4.10-5.10); RED CELL DISTRI WIDTH 15.6 % (0-14.5)
[2021-07-02 07:06] LABS: CREATININE 1.39 mg/dL (0.55-1.02); POTASSIUM 3.5 mmol/L (3.5-5.1); TOTAL PROTEIN 5.9 gm/dL (6.4-8.2)
[2021-07-02 07:10] LABS: FREE T4 0.93 ng/dl (0.76-1.46); THYROID STIM HORMONE (HS) 2.16 uIU/ml (0.358-4.75)
[2021-07-02] MEDS ORDERED: ZESTORETIC 20-1 EACH PO (07:39)
[2021-07-02] MEDS ORDERED: LOPERAMIDE HCL2 MG PO (07:41)
[2021-07-02] MEDS ORDERED: LEVETIRACETAM500 MG PO (07:42)
[2021-07-02 08:00] VITALS: BP 126/96
[2021-07-02 12:00] VITALS: BP 119/69
[2021-07-02 16:00] VITALS: BP 150/79
[2021-07-02 20:00] VITALS: BP 132/76
[2021-07-03] VITALS: BP 120/72
[2021-07-03 06:25] LABS: CHLORIDE 116 mmol/L (98-107); CREATININE 1.06 mg/dL (0.55-1.02); SODIUM 145 mmol/L (136-145)
[2021-07-03 06:28] LABS: BASO # 0.1 10*3/uL (0.0-0.1); BASO % 1.1 % (0.0-1.0); EOS # 0.5 10*3/uL (0.0-0.4); EOS % 10.3 % (1.0-4.0); HEMATOCRIT 33.9 % (37.0-47.0); LYMPH # 1.9 10*3/uL (1.3-4.4); LYMPH % 43.2 % (27.0-41.0); MEAN CELL VOLUME 88.5 fl (81.0-99.0); MEAN CORPUSCULAR HGB 27.7 pg (27.0-31.0); MEAN CORPUSCULAR HGB CONC 31.3 g/dl (33.0-37.0); MEAN PLATELET VOLUME 9.2 fl (9.6-12.3); MONO # 0.4 10*3/uL (0.1-1.0); MONO % 8.2 % (3.0-9.0); NEUT # 1.6 10*3/uL (2.3-7.9); NEUT % 36.7 % (47.0-73.0); PLATELET COUNT AUTOMATED 210 10*3/uL (130-400); RED BLOOD COUNT 3.83 10*6/uL (4.10-5.10); WHITE BLOOD COUNT 4.4 10*3/uL (4.8-10.8)
[2021-07-03 06:31] LABS: BUN 18 mg/dl (7-24)
[2021-07-03 07:46] VITALS: BP 141/82
[2021-07-03 11:56] VITALS: BP 134/88
[2021-07-03 16:00] VITALS: BP 140/77
[2021-07-03 20:00] VITALS: BP 142/76
[2021-07-04] VITALS: BP 140/80
[2021-07-04 06:02] LABS: BUN 19 mg/dl (7-24); CHLORIDE 112 mmol/L (98-107); POTASSIUM 3.9 mmol/L (3.5-5.1); SODIUM 142 mmol/L (136-145)
[2021-07-04 07:39] LABS: BASO # 0.1 10*3/uL (0.0-0.1); BASO % 1.3 % (0.0-1.0); EOS # 0.5 10*3/uL (0.0-0.4); EOS % 12.9 % (1.0-4.0); HEMATOCRIT 33.9 % (37.0-47.0); LYMPH # 1.8 10*3/uL (1.3-4.4); LYMPH % 44.4 % (27.0-41.0); MEAN CELL VOLUME 85.8 fl (81.0-99.0); MEAN CORPUSCULAR HGB 27.3 pg (27.0-31.0); MEAN CORPUSCULAR HGB CONC 31.9 g/dl (33.0-37.0); MEAN PLATELET VOLUME 8.4 fl (9.6-12.3); MONO # 0.3 10*3/uL (0.1-1.0); MONO % 7.4 % (3.0-9.0); NEUT # 1.3 10*3/uL (2.3-7.9); NEUT % 33.5 % (47.0-73.0); PLATELET COUNT AUTOMATED 181 10*3/uL (130-400); RED BLOOD COUNT 3.95 10*6/uL (4.10-5.10); RED CELL DISTRI WIDTH 14.6 % (0-14.5); WHITE BLOOD COUNT 3.9 10*3/uL (4.8-10.8)
[2021-07-04 08:00] VITALS: BP 130/78
[2021-07-04 12:00] VITALS: BP 132/56
[2021-07-04 16:00] VITALS: BP 136/74
[2021-07-04 20:00] VITALS: BP 130/72
[2021-07-05] VITALS: BP 122/71; BP 128/64
[2021-07-05 05:57] LABS: CREATININE 1.2 mg/dL (0.55-1.02); POTASSIUM 3.5 mmol/L (3.5-5.1)
[2021-07-05 06:12] LABS: BASO # 0.1 10*3/uL (0.0-0.1); BASO % 1.4 % (0.0-1.0); EOS # 0.5 10*3/uL (0.0-0.4); EOS % 11.8 % (1.0-4.0); LYMPH # 1.7 10*3/uL (1.3-4.4); LYMPH % 39.5 % (27.0-41.0); MEAN CELL VOLUME 85.8 fl (81.0-99.0); MEAN CORPUSCULAR HGB 27.9 pg (27.0-31.0); MEAN CORPUSCULAR HGB CONC 32.5 g/dl (33.0-37.0); MONO # 0.3 10*3/uL (0.1-1.0); MONO % 6.8 % (3.0-9.0); NEUT # 1.8 10*3/uL (2.3-7.9); PLATELET COUNT AUTOMATED 204 10*3/uL (130-400); RED BLOOD COUNT 3.73 10*6/uL (4.10-5.10); RED CELL DISTRI WIDTH 15.1 % (0-14.5); WHITE BLOOD COUNT 4.4 10*3/uL (4.8-10.8)
[2021-07-05 08:00] VITALS: BP 128/72
[2021-07-05 12:00] VITALS: BP 125/67
[2021-07-05 20:00] VITALS: BP 131/74
[2021-07-06] VITALS: BP 131/74
[2021-07-06 06:24] LABS: BASO # 0.1 10*3/uL (0.0-0.1); BASO % 1.4 % (0.0-1.0); EOS # 0.1 10*3/uL (0.0-0.4); EOS % 2.6 % (1.0-4.0); HEMATOCRIT 35.2 % (37.0-47.0); LYMPH % 28.1 % (27.0-41.0); MEAN CELL VOLUME 85.4 fl (81.0-99.0); MEAN CORPUSCULAR HGB 27.7 pg (27.0-31.0); MEAN CORPUSCULAR HGB CONC 32.4 g/dl (33.0-37.0); MONO # 0.1 10*3/uL (0.1-1.0); MONO % 2.8 % (3.0-9.0); NEUT # 2.2 10*3/uL (2.3-7.9); NEUT % 62.8 % (47.0-73.0); PLATELET COUNT AUTOMATED 201 10*3/uL (130-400); RED BLOOD COUNT 4.12 10*6/uL (4.10-5.10); RED CELL DISTRI WIDTH 14.6 % (0-14.5); WHITE BLOOD COUNT 3.5 10*3/uL (4.8-10.8)
[2021-07-06 06:38] LABS: CREATININE 1.26 mg/dL (0.55-1.02); POTASSIUM 3.8 mmol/L (3.5-5.1)
[2021-07-06 08:00] VITALS: BP 157/96
[2021-07-06 16:00] VITALS: BP 132/81
[2021-07-06 20:00] VITALS: BP 139/80
[2021-07-07] VITALS: BP 136/75
[2021-07-07 06:16] LABS: BASO % 0.4 % (0.0-1.0); EOS % 0.5 % (1.0-4.0); HEMATOCRIT 32.8 % (37.0-47.0); LYMPH # 1.6 10*3/uL (1.3-4.4); LYMPH % 20.6 % (27.0-41.0); MEAN CELL VOLUME 85.2 fl (81.0-99.0); MEAN CORPUSCULAR HGB 27.8 pg (27.0-31.0); MEAN CORPUSCULAR HGB CONC 32.6 g/dl (33.0-37.0); MEAN PLATELET VOLUME 9.4 fl (9.6-12.3); MONO # 0.5 10*3/uL (0.1-1.0); MONO % 6.9 % (3.0-9.0); NEUT # 5.4 10*3/uL (2.3-7.9); NEUT % 70.9 % (47.0-73.0); PLATELET COUNT AUTOMATED 228 10*3/uL (130-400); RED BLOOD COUNT 3.85 10*6/uL (4.10-5.10); RED CELL DISTRI WIDTH 15.1 % (0-14.5); WHITE BLOOD COUNT 7.6 10*3/uL (4.8-10.8)
[2021-07-07 06:29] LABS: ALKALINE PHOSPHATASE 71 U/L (45-117); BUN 24 mg/dl (7-24); CHLORIDE 110 mmol/L (98-107); CREATININE 1.11 mg/dL (0.55-1.02); SGOT/AST 32 IU/L (3-35); SGPT/ALT 26 U/L (12-78); SODIUM 140 mmol/L (136-145)
[2021-07-07 06:31] LABS: POTASSIUM 3.8 mmol/L (3.5-5.1)
[2021-07-07 08:00] VITALS: BP 146/77
[2021-07-07 10:00] VITALS: BP 146/77
[2021-07-07 16:00] VITALS: BP 136/67
[2021-07-07 20:00] VITALS: BP 113/68
[2021-07-08] VITALS: BP 109/61
[2021-07-08 08:00] VITALS: BP 122/76
[2021-07-08 12:00] VITALS: BP 126/78
[2021-07-08 16:00] VITALS: BP 125/71
[2021-07-08 20:00] VITALS: BP 135/74
[2021-07-09] VITALS: BP 117/95
[2021-07-09 06:13] LABS: CREATININE 1.42 mg/dL (0.55-1.02); POTASSIUM 4.1 mmol/L (3.5-5.1)
[2021-07-09 06:16] LABS: BASO # 0.1 10*3/uL (0.0-0.1); BASO % 1.3 % (0.0-1.0); EOS # 0.4 10*3/uL (0.0-0.4); EOS % 7.2 % (1.0-4.0); HEMATOCRIT 36.2 % (37.0-47.0); LYMPH # 2.5 10*3/uL (1.3-4.4); LYMPH % 45.6 % (27.0-41.0); MEAN CELL VOLUME 86.8 fl (81.0-99.0); MEAN CORPUSCULAR HGB 27.6 pg (27.0-31.0); MEAN CORPUSCULAR HGB CONC 31.8 g/dl (33.0-37.0); MEAN PLATELET VOLUME 9.3 fl (9.6-12.3); MONO # 0.4 10*3/uL (0.1-1.0); MONO % 7.9 % (3.0-9.0); NEUT # 2.1 10*3/uL (2.3-7.9); NEUT % 37.3 % (47.0-73.0); PLATELET COUNT AUTOMATED 207 10*3/uL (130-400); RED BLOOD COUNT 4.17 10*6/uL (4.10-5.10); RED CELL DISTRI WIDTH 15.4 % (0-14.5); WHITE BLOOD COUNT 5.6 10*3/uL (4.8-10.8)
[2021-07-09 08:00] VITALS: BP 126/79
[2021-07-09] MEDS ORDERED: GABAPENTIN400 MG PO (11:41)
[2021-07-09] MEDS ORDERED: TRAMADOL HCL50 MG PO (11:41)
[2021-07-09] MEDS ORDERED: LORAZEPAM1 MG PO (11:41)
[2021-07-09] MEDS ORDERED: TAMSULOSIN HCL0.4 MG PO (11:41)
[2021-07-09 12:00] VITALS: BP 129/63
[2021-07-09 16:00] VITALS: BP 140/85
[2021-07-10] MEDS ORDERED: PERCOCET 7.5-31 EACH PO (13:32)
== END 2021-07-09 17:33 | DRG 383 ==
LOC: ED 09:19 → EDHOLD 14:34 → 5E 14:34 → EDHOLD 14:51 → 5E 15:05
PROVIDERS: Family Medicine; Hospitalist; Internal Medicine; Physical Therapist; Student in an Organized Health Care Education/Training Program; ADMIT Internal Medicine; ATTEND Internal Medicine
DX: L03.113 Cellulitis of right upper limb (principal); N17.0 Acute kidney failure with tubular necrosis; Z20.822 Contact with and (suspected) exposure to COVID-19; D64.9 Anemia, unspecified; I10 Essential (primary) hypertension; J44.9 Chronic obstructive pulmonary disease, unspecified; K21.9 Gastro-esophageal reflux disease without esophagitis; M25.562 Pain in left knee; M25.561 Pain in right knee; F17.210 Nicotine dependence, cigarettes, uncomplicated; G89.29 Other chronic pain; E03.9 Hypothyroidism, unspecified; D70.9 Neutropenia, unspecified; R91.1 Solitary pulmonary nodule; Z90.49 Acquired absence of other specified parts of digestive tract; Z71.6 Tobacco abuse counseling; Z79.1 Long term (current) use of non-steroidal anti-inflammatories (NSAID); Z79.899 Other long term (current) drug therapy; Z79.51 Long term (current) use of inhaled steroids; Z88.6 Allergy status to analgesic agent; Z88.5 Allergy status to narcotic agent; Z88.2 Allergy status to sulfonamides; Z88.1 Allergy status to other antibiotic agents; Z91.041 Radiographic dye allergy status; I69.351 Hemiplegia and hemiparesis following cerebral infarction affecting right dominant side

== ENCOUNTER 2021-08-10 00:01 | Inpatient (IN) | payer MEDICAID ==
[~2021-08-10] VITALS: Ht 157.4 cm; Wt 60.1 kg
[~2021-08-10 00:01] MED LIST changes: +CERTAVITE-ANTI1 EACH PO; +CLOPIDOGREL75 MG PO; +FAMOTIDINE40 MG PO; +FENOFIBRATE48 M1 PO; +GABAPENTIN400 MG PO; +LATUDA80 M1 PO; +LOPERAMIDE HCL2 MG PO; +LORAZEPAM1 MG PO; +POTASSIUM CHLO20 ME4 PO; +TAMSULOSIN HCL0.4 MG PO; +VENT7GM INH; +VITAMIN D350 MCG PO; +ZESTORETIC 20-1 EACH PO
[2021-08-10 00:04] VITALS: BP 167/110
[2021-08-10] MEDS ORDERED: ATIVAN0.5 MG PO (00:13)
[2021-08-10] MEDS ORDERED: GOOD NEIGHBOR L10 MG PO (00:14)
[2021-08-10] MEDS ORDERED: Percocet 325 MG1 TAB PO (00:18)
[2021-08-10 01:54] LABS: BASO # 0.1 10*3/uL (0.0-0.1); BASO % 0.5 % (0.0-1.0); EOS # 0.4 10*3/uL (0.0-0.4); EOS % 4.3 % (1.0-4.0); HEMATOCRIT 46.6 % (37.0-47.0); LYMPH % 21.4 % (27.0-41.0); MEAN CELL VOLUME 86.5 fl (81.0-99.0); MEAN CORPUSCULAR HGB CONC 32.4 g/dl (33.0-37.0); MEAN PLATELET VOLUME 9.8 fl (9.6-12.3); MONO # 0.8 10*3/uL (0.1-1.0); MONO % 8.4 % (3.0-9.0); NEUT % 65.1 % (47.0-73.0); PLATELET COUNT AUTOMATED 210 10*3/uL (130-400); RED BLOOD COUNT 5.39 10*6/uL (4.10-5.10); RED CELL DISTRI WIDTH 14.5 % (0-14.5); WHITE BLOOD COUNT 9.3 10*3/uL (4.8-10.8)
[2021-08-10 02:19] LABS: ALKALINE PHOSPHATASE 75 U/L (45-117); BUN 25 mg/dl (7-24); CHLORIDE 109 mmol/L (98-107); CREATININE 0.99 mg/dL (0.55-1.02); SGOT/AST 18 IU/L (3-35); SGPT/ALT 26 U/L (12-78); SODIUM 138 mmol/L (136-145); TOTAL PROTEIN 6.6 gm/dL (6.4-8.2)
[2021-08-10 02:19] LABS: BILIRUBIN Negative (Negative); BLOOD Negative (Negative); CLARITY Clear (Clear); COLOR Yellow (Yellow); GLUCOSE Negative (Negative); KETONE Negative (Negative); LEUKO ESTERASE Negative (Negative); NITRITE Negative (Negative); PH 5.5 (4.5-8.0); SPECIFIC GRAVITY 1.025 (1.001-1.030); UROBILINOGEN 0.2 E.U./dl (0.0-1.0)
[2021-08-10 02:32] LABS: BACTERIA TRACE
[2021-08-10 08:00] VITALS: BP 160/84
[2021-08-10 12:00] VITALS: BP 155/91
[2021-08-10 16:00] VITALS: BP 177/96
[2021-08-10 20:00] VITALS: BP 168/100
[2021-08-10 20:34] VITALS: BP 156/102
[2021-08-10 23:57] LABS: BUN 16 mg/dl (7-24); CHLORIDE 111 mmol/L (98-107); CREATININE 0.72 mg/dL (0.55-1.02); POTASSIUM 3.6 mmol/L (3.5-5.1); SODIUM 139 mmol/L (136-145)
[2021-08-11] VITALS: BP 153/93
[2021-08-11 05:55] LABS: ALKALINE PHOSPHATASE 62 U/L (45-117); BUN 15 mg/dl (7-24); CHLORIDE 111 mmol/L (98-107); CREATININE 0.73 mg/dL (0.55-1.02); POTASSIUM 3.6 mmol/L (3.5-5.1); SGOT/AST 31 IU/L (3-35); SGPT/ALT 19 U/L (12-78); SODIUM 138 mmol/L (136-145); TOTAL PROTEIN 5.6 gm/dL (6.4-8.2)
[2021-08-11 05:56] LABS: LIPASE 11431 U/L (73-393)
[2021-08-11 06:38] LABS: BASO # 0.1 10*3/uL (0.0-0.1); BASO % 0.4 % (0.0-1.0); EOS % 0.1 % (1.0-4.0); HEMATOCRIT 46.9 % (37.0-47.0); LYMPH # 1.3 10*3/uL (1.3-4.4); LYMPH % 9.2 % (27.0-41.0); MEAN CELL VOLUME 85.4 fl (81.0-99.0); MEAN CORPUSCULAR HGB 27.9 pg (27.0-31.0); MEAN CORPUSCULAR HGB CONC 32.6 g/dl (33.0-37.0); MEAN PLATELET VOLUME 10.2 fl (9.6-12.3); MONO # 0.8 10*3/uL (0.1-1.0); MONO % 5.8 % (3.0-9.0); NEUT # 11.7 10*3/uL (2.3-7.9); NEUT % 84.1 % (47.0-73.0); PLATELET COUNT AUTOMATED 181 10*3/uL (130-400); RED BLOOD COUNT 5.49 10*6/uL (4.10-5.10); RED CELL DISTRI WIDTH 14.6 % (0-14.5); WHITE BLOOD COUNT 13.9 10*3/uL (4.8-10.8)
[2021-08-11 08:00] VITALS: BP 137/88
[2021-08-11 12:00] VITALS: BP 155/98
[2021-08-11 16:00] VITALS: BP 148/82
== END 2021-08-11 19:29 | disposition short-term general hospital (02) | DRG 720 ==
LOC: ED 00:01 → EDHOLD 04:33 → 4E 04:33
PROVIDERS: Emergency Medicine; Internal Medicine; ADMIT Student in an Organized Health Care Education/Training Program; ATTEND Student in an Organized Health Care Education/Training Program
DX: A41.9 Sepsis, unspecified organism (principal); K85.90 Acute pancreatitis without necrosis or infection, unspecified; L03.119 Cellulitis of unspecified part of limb; E87.8 Other disorders of electrolyte and fluid balance, not elsewhere classified; F17.210 Nicotine dependence, cigarettes, uncomplicated; I10 Essential (primary) hypertension; F41.9 Anxiety disorder, unspecified; E03.9 Hypothyroidism, unspecified; J44.9 Chronic obstructive pulmonary disease, unspecified; K21.9 Gastro-esophageal reflux disease without esophagitis; M50.30 Other cervical disc degeneration, unspecified cervical region; Z82.49 Family history of ischemic heart disease and other diseases of the circulatory system; Z91.041 Radiographic dye allergy status; Z88.1 Allergy status to other antibiotic agents; Z88.8 Allergy status to other drugs, medicaments and biological substances; Z88.2 Allergy status to sulfonamides; Z71.6 Tobacco abuse counseling; Z88.6 Allergy status to analgesic agent; Z90.49 Acquired absence of other specified parts of digestive tract; Z79.1 Long term (current) use of non-steroidal anti-inflammatories (NSAID); Z79.899 Other long term (current) drug therapy

== ENCOUNTER → 2022-04-13 | Outpatient (CLI) | payer MEDICAID ==
[~2022-04-13] MED LIST changes: +GOOD NEIGHBOR L10 MG PO
== END | disposition home or self-care (01) ==
LOC: MAMMO 09:00
PROVIDERS: ATTEND Internal Medicine
DX: Z12.31 Encounter for screening mammogram for malignant neoplasm of breast (principal); Z13.820 Encounter for screening for osteoporosis; N64.9 Disorder of breast, unspecified; M81.0 Age-related osteoporosis without current pathological fracture

== ENCOUNTER 2022-04-30 05:23 | Inpatient (IN) | payer MEDICAID ==
[~2022-04-30] VITALS: Ht 162.5 cm; Wt 72.6 kg
[2022-04-30] VITALS (34 sets, daily range): BP systolic 80–178; BP diastolic 29–99
[2022-04-30 06:03] LABS: ALKALINE PHOSPHATASE 116 U/L (46-116); BUN 11 mg/dl (9-23); CHLORIDE 99 mmol/L (98-107); POTASSIUM 4.2 mmol/L (3.4-5.1); SGPT/ALT 47 U/L (10-49); TOTAL PROTEIN 7.8 gm/dL (6.0-8.0)
[2022-04-30 06:07] LABS: BASO # 0.1 10*3/uL (0.0-0.1); BASO % 1.4 % (0.0-1.0); EOS % 0.3 % (1.0-4.0); HEMATOCRIT 46.9 % (37.0-47.0); LYMPH # 0.3 10*3/uL (1.3-4.4); LYMPH % 4.2 % (27.0-41.0); MEAN CELL VOLUME 83.5 fl (81.0-99.0); MEAN CORPUSCULAR HGB CONC 32.4 g/dl (33.0-37.0); MEAN PLATELET VOLUME 10.3 fl (9.6-12.3); MONO # 0.4 10*3/uL (0.1-1.0); MONO % 5.6 % (3.0-9.0); NEUT # 6.8 10*3/uL (2.3-7.9); NEUT % 86.8 % (47.0-73.0); PLATELET COUNT AUTOMATED 203 10*3/uL (130-400); RED BLOOD COUNT 5.62 10*6/uL (4.10-5.10); RED CELL DISTRI WIDTH 13.3 % (0-14.5); WHITE BLOOD COUNT 7.9 10*3/uL (4.8-10.8)
[2022-04-30] MEDS ORDERED: AMLODIPINE BESYL5 MG PO (06:21)
[2022-04-30] MEDS ORDERED: ST. JOSEPH ASPI81 MG PO (06:21)
[2022-04-30] MEDS ORDERED: LATU80TA PO (06:22)
[2022-04-30] MEDS ORDERED: FOSAMAX70 M1 PO (06:22)
[2022-04-30] MEDS ORDERED: LIPITOR40 MG PO (06:22)
[2022-04-30] MEDS ORDERED: LISINOPRIL2.5 MG PO (06:23)
[2022-04-30] MEDS ORDERED: PERCOCET 7.5-31 EACH PO (06:25)
[2022-04-30] MEDS ORDERED: PROTONIX40 MG PO (06:26)
[2022-04-30] MEDS ORDERED: METHOCARBAMOL500 M1 PO (06:27)
[2022-04-30] MEDS ORDERED: Synthroid,Levo50 MCG PO (06:27)
[2022-04-30] MEDS ORDERED: ZOLOFT50 MG PO (06:28)
[2022-04-30 13:13] LABS: BILIRUBIN Negative (Negative); BLOOD 3+ (Negative); CLARITY Cloudy (Clear); COLOR Orange (Yellow); GLUCOSE Negative (Negative); KETONE Negative (Negative); LEUKO ESTERASE Trace (Negative); NITRITE Positive (Negative); PH 5.5 (4.5-8.0); SPECIFIC GRAVITY 1.015 (1.001-1.030)
[2022-04-30 13:49] LABS: BACTERIA 4+
[2022-04-30 14:00] LABS: HEMATOCRIT 51.9 % (37.0-47.0); MEAN CELL VOLUME 83.7 fl (81.0-99.0); MEAN CORPUSCULAR HGB 26.8 pg (27.0-31.0); MEAN PLATELET VOLUME 10.3 fl (9.6-12.3); PLATELET COUNT AUTOMATED 256 10*3/uL (130-400); RED CELL DISTRI WIDTH 13.4 % (0-14.5); WHITE BLOOD COUNT 15.5 10*3/uL (4.8-10.8)
[2022-04-30 14:02] LABS: MANUAL DIFF REFLEX YES
[2022-04-30 14:22] LABS: PLATELET SUFFICIENCY NORMAL (NORMAL); TOTAL CELLS COUNTED 100 #CELLS; TOXIC GRANULATION SLIGHT
[2022-04-30 14:30] LABS: ABG BASE EXCESS -1.3 mmol/L (-2.0-2.0); ARTERIAL BLOOD GAS PO2 60.3 (80-90)
[2022-04-30 14:31] LABS: POTASSIUM 4.5 mmol/L (3.4-5.1); TOTAL PROTEIN 8.1 gm/dL (6.0-8.0)
[2022-04-30 14:32] LABS: ARTERIAL BLOOD GAS PH 7.159 (7.35-7.45)
[2022-04-30] MEDS ORDERED: TYLENOL325 M2 PO (17:50)
[2022-04-30] MEDS ORDERED: Ventolin 02.5 MG/3 M INH (17:51)
[2022-04-30] MEDS ORDERED: BENADRYL ALLERG25 M5 PO (17:54)
[2022-04-30 17:56] LABS: ARTERIAL BLOOD GAS PO2 302.5 (80-90)
[2022-04-30 17:57] LABS: ABG BASE EXCESS -7.4 mmol/L (-2.0-2.0); ARTERIAL BLOOD GAS PH 7.186 (7.35-7.45)
[2022-04-30] MEDS ORDERED: BISACODYL10 MG R (17:57)
[2022-04-30] MEDS ORDERED: FLEET ENEMA 13133 ML R (17:58)
[2022-04-30] MEDS ORDERED: FLONASE ALLERG9.9 ML NAS (17:59)
[2022-04-30] MEDS ORDERED: ZESTRIL20 MG PO (18:02)
[2022-04-30] MEDS ORDERED: MELATONIN10 M2 PO (18:05)
[2022-04-30] MEDS ORDERED: MILK OF MA400 MG/5 M PO (18:07)
[2022-04-30] MEDS ORDERED: NEURONTIN100 MG PO (18:13)
[2022-04-30] MEDS ORDERED: CALCIUM 500 MG1 EAC5 PO (18:14)
[2022-04-30] MEDS ORDERED: CREON DR 12,001 EACH PO (18:17)
[2022-04-30] MEDS ORDERED: SENNA8.6 MG PO (18:23)
[2022-04-30] MEDS ORDERED: BENZONATATE100 M1 PO (18:25)
[2022-04-30] MEDS ORDERED: ONDANSETRON HYDR4 MG PO (18:27)
[2022-05-01] VITALS (96 sets, daily range): BP systolic 69–121; BP diastolic 37–77
[2022-05-01 06:06] LABS: HEMATOCRIT 36.9 % (37.0-47.0); MEAN CELL VOLUME 83.1 fl (81.0-99.0); MEAN CORPUSCULAR HGB 26.6 pg (27.0-31.0); MEAN PLATELET VOLUME 10.3 fl (9.6-12.3); POTASSIUM 4.3 mmol/L (3.4-5.1); RED BLOOD COUNT 4.44 10*6/uL (4.10-5.10); RED CELL DISTRI WIDTH 13.6 % (0-14.5); THYROID STIM HORMONE (HS) 0.379 uIU/ml (0.550-4.780); WHITE BLOOD COUNT 8.1 10*3/uL (4.8-10.8)
[2022-05-01 06:11] LABS: MANUAL DIFF REFLEX YES; PLATELET COUNT AUTOMATED 146 10*3/uL (130-400)
[2022-05-01 06:53] LABS: INTERNATIONAL NORM RATIO 1.1 (2.0-3.5)
[2022-05-01 07:09] LABS: ACT PARTIAL THROMBO TIME > 139.0 SECONDS (20.0-32.1)
[2022-05-01 07:30] LABS: OVALOCYTES FEW; PLATELET SUFFICIENCY NORMAL (NORMAL); TOTAL CELLS COUNTED 100 #CELLS
[2022-05-01 09:51] LABS: VITAMIN D, 25-HYDROXY 53.9 ng/mL (30-100)
[2022-05-01 14:34] LABS: VENOUS PH 7.272 (7.37-7.45)
[2022-05-01 14:36] LABS: HEMATOCRIT 34.5 % (37.0-47.0); MEAN CELL VOLUME 82.9 fl (81.0-99.0); MEAN CORPUSCULAR HGB 26.4 pg (27.0-31.0); MEAN CORPUSCULAR HGB CONC 31.9 g/dl (33.0-37.0); MEAN PLATELET VOLUME 9.6 fl (9.6-12.3); PLATELET COUNT AUTOMATED 126 10*3/uL (130-400); RED BLOOD COUNT 4.16 10*6/uL (4.10-5.10); RED CELL DISTRI WIDTH 13.7 % (0-14.5); WHITE BLOOD COUNT 7.4 10*3/uL (4.8-10.8)
[2022-05-01 14:55] LABS: POTASSIUM 4.3 mmol/L (3.4-5.1)
[2022-05-01 15:02] LABS: MANUAL DIFF REFLEX YES
[2022-05-01 15:44] LABS: TOTAL CELLS COUNTED 100 #CELLS
[2022-05-01 15:46] LABS: PLATELET SUFFICIENCY NORMAL (NORMAL)
[2022-05-02] VITALS (96 sets, daily range): BP systolic 81–137; BP diastolic 44–74
[2022-05-02 05:26] LABS: TOTAL PROTEIN 5.4 gm/dL (6.0-8.0)
[2022-05-02 06:55] LABS: BASO % 0.2 % (0.0-1.0); EOS % 0.3 % (1.0-4.0); HEMATOCRIT 31.8 % (37.0-47.0); LYMPH # 0.5 10*3/uL (1.3-4.4); MEAN CELL VOLUME 80.9 fl (81.0-99.0); MEAN CORPUSCULAR HGB 26.5 pg (27.0-31.0); MEAN CORPUSCULAR HGB CONC 32.7 g/dl (33.0-37.0); MEAN PLATELET VOLUME 10.3 fl (9.6-12.3); MONO # 0.3 10*3/uL (0.1-1.0); MONO % 5.3 % (3.0-9.0); NEUT % 84.2 % (47.0-73.0); PLATELET COUNT AUTOMATED 111 10*3/uL (130-400); RED BLOOD COUNT 3.93 10*6/uL (4.10-5.10); RED CELL DISTRI WIDTH 13.8 % (0-14.5); WHITE BLOOD COUNT 5.9 10*3/uL (4.8-10.8)
[2022-05-02 10:28] LABS: LIPASE 33 U/L (12-53)
[2022-05-02 10:57] LABS: ABG BASE EXCESS -6.2 mmol/L (-2.0-2.0); ARTERIAL BLOOD GAS PH 7.294 (7.35-7.45); ARTERIAL BLOOD GAS PO2 114.5 (80-90)
[2022-05-03] VITALS (52 sets, daily range): BP systolic 100–148; BP diastolic 57–77
[2022-05-03 06:03] LABS: BASO % 0.2 % (0.0-1.0); EOS % 0.9 % (1.0-4.0); HEMATOCRIT 30.7 % (37.0-47.0); LYMPH # 0.6 10*3/uL (1.3-4.4); LYMPH % 13.7 % (27.0-41.0); MEAN CELL VOLUME 80.2 fl (81.0-99.0); MEAN CORPUSCULAR HGB 26.4 pg (27.0-31.0); MEAN CORPUSCULAR HGB CONC 32.9 g/dl (33.0-37.0); MEAN PLATELET VOLUME 10.4 fl (9.6-12.3); MONO # 0.4 10*3/uL (0.1-1.0); MONO % 7.7 % (3.0-9.0); NEUT # 3.6 10*3/uL (2.3-7.9); NEUT % 77.1 % (47.0-73.0); PLATELET COUNT AUTOMATED 106 10*3/uL (130-400); RED BLOOD COUNT 3.83 10*6/uL (4.10-5.10); RED CELL DISTRI WIDTH 13.4 % (0-14.5); WHITE BLOOD COUNT 4.7 10*3/uL (4.8-10.8)
[2022-05-03 06:14] LABS: POTASSIUM 3.8 mmol/L (3.4-5.1); TOTAL PROTEIN 5.5 gm/dL (6.0-8.0)
[2022-05-03 09:04] LABS: ARTERIAL BLOOD GAS PH 7.281 (7.35-7.45); ARTERIAL BLOOD GAS PO2 94.6 (80-90)
[2022-05-03 09:05] LABS: ABG BASE EXCESS -9.3 mmol/L (-2.0-2.0)
[2022-05-03 09:06] LABS: HBSAG Negative (Negative); HEP B CORE AB, IGM Negative (Negative); HEPATITIS C ANTIBODY Non Reactive (Non Reactive)
[2022-05-04] VITALS (12 sets, daily range): BP systolic 109–140; BP diastolic 65–82
[2022-05-04 05:28] LABS: POTASSIUM 3.9 mmol/L (3.4-5.1); TOTAL PROTEIN 5.4 gm/dL (6.0-8.0)
[2022-05-04 06:27] LABS: BASO % 0.3 % (0.0-1.0); EOS # 0.1 10*3/uL (0.0-0.4); EOS % 1.8 % (1.0-4.0); HEMATOCRIT 27.7 % (37.0-47.0); LYMPH # 0.6 10*3/uL (1.3-4.4); LYMPH % 18.9 % (27.0-41.0); MEAN CORPUSCULAR HGB CONC 34.7 g/dl (33.0-37.0); MEAN PLATELET VOLUME 10.2 fl (9.6-12.3); MONO # 0.3 10*3/uL (0.1-1.0); MONO % 10.2 % (3.0-9.0); NEUT # 2.3 10*3/uL (2.3-7.9); NEUT % 68.5 % (47.0-73.0); PLATELET COUNT AUTOMATED 104 10*3/uL (130-400); RED BLOOD COUNT 3.55 10*6/uL (4.10-5.10); RED CELL DISTRI WIDTH 13.2 % (0-14.5); WHITE BLOOD COUNT 3.3 10*3/uL (4.8-10.8)
[2022-05-05] VITALS (12 sets, daily range): BP systolic 119–167; BP diastolic 64–95
[2022-05-05 06:43] LABS: BASO % 0.6 % (0.0-1.0); EOS # 0.1 10*3/uL (0.0-0.4); EOS % 2.3 % (1.0-4.0); HEMATOCRIT 29.6 % (37.0-47.0); LYMPH # 0.6 10*3/uL (1.3-4.4); LYMPH % 16.2 % (27.0-41.0); MEAN CELL VOLUME 78.7 fl (81.0-99.0); MEAN CORPUSCULAR HGB 26.6 pg (27.0-31.0); MEAN CORPUSCULAR HGB CONC 33.8 g/dl (33.0-37.0); MONO # 0.4 10*3/uL (0.1-1.0); MONO % 11.8 % (3.0-9.0); NEUT # 2.3 10*3/uL (2.3-7.9); NEUT % 67.4 % (47.0-73.0); PLATELET COUNT AUTOMATED 109 10*3/uL (130-400); RED BLOOD COUNT 3.76 10*6/uL (4.10-5.10); RED CELL DISTRI WIDTH 13.3 % (0-14.5); WHITE BLOOD COUNT 3.5 10*3/uL (4.8-10.8)
[2022-05-05 07:24] LABS: POTASSIUM 3.7 mmol/L (3.4-5.1); TOTAL PROTEIN 5.7 gm/dL (6.0-8.0)
[2022-05-05 15:37] LABS: ARTERIAL BLOOD GAS PH 7.281 (7.35-7.45); ARTERIAL BLOOD GAS PO2 114.6 (80-90)
[2022-05-05 15:38] LABS: ABG BASE EXCESS -9.1 mmol/L (-2.0-2.0)
[2022-05-06] VITALS: BP 125/80
[2022-05-06 04:00] VITALS: BP 161/82
[2022-05-06 06:10] LABS: POTASSIUM 3.5 mmol/L (3.4-5.1); TOTAL PROTEIN 5.9 gm/dL (6.0-8.0)
[2022-05-06 06:17] LABS: BASO % 0.2 % (0.0-1.0); EOS # 0.1 10*3/uL (0.0-0.4); EOS % 1.2 % (1.0-4.0); HEMATOCRIT 30.2 % (37.0-47.0); LYMPH # 0.6 10*3/uL (1.3-4.4); LYMPH % 13.2 % (27.0-41.0); MEAN CELL VOLUME 78.2 fl (81.0-99.0); MEAN CORPUSCULAR HGB 26.2 pg (27.0-31.0); MEAN CORPUSCULAR HGB CONC 33.4 g/dl (33.0-37.0); MEAN PLATELET VOLUME 9.8 fl (9.6-12.3); MONO # 0.5 10*3/uL (0.1-1.0); MONO % 11.8 % (3.0-9.0); NEUT % 70.8 % (47.0-73.0); PLATELET COUNT AUTOMATED 119 10*3/uL (130-400); RED BLOOD COUNT 3.86 10*6/uL (4.10-5.10); RED CELL DISTRI WIDTH 13.4 % (0-14.5); WHITE BLOOD COUNT 4.3 10*3/uL (4.8-10.8)
[2022-05-06 08:00] VITALS: BP 148/80
[2022-05-06 12:00] VITALS: BP 137/83
[2022-05-06 16:00] VITALS: BP 138/82
[2022-05-06 20:00] VITALS: BP 163/78
[2022-05-07] VITALS: BP 143/81
[2022-05-07 04:00] VITALS: BP 168/83
[2022-05-07 05:13] LABS: TOTAL PROTEIN 6.1 gm/dL (6.0-8.0)
[2022-05-07 06:28] LABS: HEMATOCRIT 28.8 % (37.0-47.0); MEAN CORPUSCULAR HGB 26.5 pg (27.0-31.0); MEAN CORPUSCULAR HGB CONC 34.4 g/dl (33.0-37.0); MEAN PLATELET VOLUME 9.7 fl (9.6-12.3); PLATELET COUNT AUTOMATED 148 10*3/uL (130-400); RED BLOOD COUNT 3.74 10*6/uL (4.10-5.10); RED CELL DISTRI WIDTH 13.4 % (0-14.5)
[2022-05-07 06:38] LABS: MANUAL DIFF REFLEX YES
[2022-05-07 07:03] LABS: ATYPICAL LYMPHS 1 % (0-0); BURR CELLS FEW; MICROCYTOSIS SLIGHT; OVALOCYTES FEW; PLATELET SUFFICIENCY NORMAL (NORMAL); POLYCHROMASIA SLIGHT; ROULEAUX SLIGHT; SCHISTOCYTES FEW; TOTAL CELLS COUNTED 100 #CELLS
[2022-05-07 08:00] VITALS: BP 165/93
[2022-05-07 12:00] VITALS: BP 188/105
[2022-05-07 16:00] VITALS: BP 187/87
== END 2022-05-07 17:57 | disposition hospice, inpatient (51) | DRG 720 ==
LOC: ED 05:23 → EDHOLD 06:25 → ICCU 06:25 → EDHOLD 08:30 → ICCU 14:44
PROVIDERS: Emergency Medicine; Family Medicine; Internal Medicine; Internal Medicine Critical Care Medicine; Internal Medicine Pulmonary Disease; ADMIT Internal Medicine; ATTEND Internal Medicine
PROC: 5A1955Z Respiratory Ventilation, Greater than 96 Consecutive Hours (ICD-10-PCS; principal; 2022-04-30)
PROC: 0BH17EZ Insertion of Endotracheal Airway into Trachea, Via Natural or Artificial Opening (ICD-10-PCS; 2022-04-30)
PROC: 02HV33Z Insertion of Infusion Device into Superior Vena Cava, Percutaneous Approach (ICD-10-PCS; 2022-04-30)
PROC: B548ZZA Ultrasonography of Superior Vena Cava, Guidance (ICD-10-PCS; 2022-04-30)
PROC: 5A09357 Assistance with Respiratory Ventilation, Less than 24 Consecutive Hours, Continuous Positive Airway Pressure (ICD-10-PCS; 2022-05-05)
PROC: 5A09357 Assistance with Respiratory Ventilation, Less than 24 Consecutive Hours, Continuous Positive Airway Pressure (ICD-10-PCS; 2022-05-06)
PROC: 5A09357 Assistance with Respiratory Ventilation, Less than 24 Consecutive Hours, Continuous Positive Airway Pressure (ICD-10-PCS; 2022-05-07)
DX: A41.9 Sepsis, unspecified organism (principal); J18.9 Pneumonia, unspecified organism; J96.01 Acute respiratory failure with hypoxia; I21.4 Non-ST elevation (NSTEMI) myocardial infarction; J10.1 Influenza due to other identified influenza virus with other respiratory manifestations; Z66 Do not resuscitate; R65.21 Severe sepsis with septic shock; E87.1 Hypo-osmolality and hyponatremia; I67.1 Cerebral aneurysm, nonruptured; Z51.5 Encounter for palliative care; I50.31 Acute diastolic (congestive) heart failure; Z20.822 Contact with and (suspected) exposure to COVID-19; R74.01 Elevation of levels of liver transaminase levels; R73.9 Hyperglycemia, unspecified; M50.30 Other cervical disc degeneration, unspecified cervical region; I11.0 Hypertensive heart disease with heart failure; J44.0 Chronic obstructive pulmonary disease with (acute) lower respiratory infection; F17.210 Nicotine dependence, cigarettes, uncomplicated; K21.9 Gastro-esophageal reflux disease without esophagitis; N39.0 Urinary tract infection, site not specified; D70.9 Neutropenia, unspecified; J96.02 Acute respiratory failure with hypercapnia; E87.5 Hyperkalemia; N17.0 Acute kidney failure with tubular necrosis; J45.41 Moderate persistent asthma with (acute) exacerbation; I34.0 Nonrheumatic mitral (valve) insufficiency; E03.9 Hypothyroidism, unspecified; B96.20 Unspecified Escherichia coli [E. coli] as the cause of diseases classified elsewhere; Z88.2 Allergy status to sulfonamides; Z88.1 Allergy status to other antibiotic agents; Z91.041 Radiographic dye allergy status; Z88.6 Allergy status to analgesic agent; Z90.49 Acquired absence of other specified parts of digestive tract; Z86.73 Personal history of transient ischemic attack (TIA), and cerebral infarction without residual deficits; Z82.49 Family history of ischemic heart disease and other diseases of the circulatory system; Z79.51 Long term (current) use of inhaled steroids; Z79.82 Long term (current) use of aspirin; Z79.899 Other long term (current) drug therapy; Z79.1 Long term (current) use of non-steroidal anti-inflammatories (NSAID); Z71.6 Tobacco abuse counseling

== ENCOUNTER 2022-05-07 18:28 | Inpatient (IN) | payer OTHER ==
[~2022-05-07] VITALS: Ht 160 cm; Wt 72.6 kg
[~2022-05-07 18:28] MED LIST changes: +AMLODIPINE BESYL5 MG PO; +BENADRYL ALLERG25 M5 PO; +BENZONATATE100 M1 PO; +BISACODYL10 MG R; +CALCIUM 500 MG1 EAC5 PO; +CREON DR 12,001 EACH PO; +FLEET ENEMA 13133 ML R; +FLONASE ALLERG9.9 ML NAS; +FOSAMAX70 M1 PO; +LATU80TA PO; +LIPITOR40 MG PO; +LISINOPRIL2.5 MG PO; +MELATONIN10 M2 PO; +METHOCARBAMOL500 M1 PO; +MILK OF MA400 MG/5 M PO; +NEURONTIN100 MG PO; +ONDANSETRON HYDR4 MG PO; +PROTONIX40 MG PO; +SENNA8.6 MG PO; +ST. JOSEPH ASPI81 MG PO; +Synthroid,Levo50 MCG PO; +TYLENOL325 M2 PO; +Ventolin 02.5 MG/3 M INH; +ZESTRIL20 MG PO; +ZOLOFT50 MG PO
[2022-05-07 18:35] VITALS: BP 172/96
[2022-05-07 20:00] VITALS: BP 179/107
[2022-05-07 20:25] VITALS: BP 172/91
[2022-05-08] VITALS: BP 121/70
[2022-05-08 04:05] VITALS: BP 122/73
[2022-05-08 08:00] VITALS: BP 116/70
[2022-05-08 12:00] VITALS: BP 160/80
[2022-05-08 16:00] VITALS: BP 153/84
== END 2022-05-09 05:35 | DRG 189 ==
LOC: 5E 18:28 → ICCU 18:28 → 5E 20:33
PROVIDERS: ADMIT Internal Medicine; ATTEND Internal Medicine
PROC: 5A09357 Assistance with Respiratory Ventilation, Less than 24 Consecutive Hours, Continuous Positive Airway Pressure (ICD-10-PCS; principal; 2022-05-07)
DX: J96.01 Acute respiratory failure with hypoxia (principal); I21.4 Non-ST elevation (NSTEMI) myocardial infarction; N17.0 Acute kidney failure with tubular necrosis; E87.1 Hypo-osmolality and hyponatremia; Z66 Do not resuscitate; Z51.5 Encounter for palliative care; J10.1 Influenza due to other identified influenza virus with other respiratory manifestations; I10 Essential (primary) hypertension; E03.9 Hypothyroidism, unspecified